=== PATIENT | male | born 1980 | race Caucasian/White ===

== ENCOUNTER → 2018-01-28 | Outpatient (CLI) | payer OTHER ==
[~2018-01-28] MED LIST: AMITRIPTYLINE H25 M2 PO; FLEXERIL PO; HYDROCODONE-AP1 EAC6; IBUPROFEN 800800 MG PO; NAPROSYN500 MG PO; NEURONTIN600 MG PO; NORTRIPTYLINE H25 M3 PO
== END ==
LOC: M.MRI 06:53
DX: M77.31 Calcaneal spur, right foot (principal); Z87.891 Personal history of nicotine dependence

== ENCOUNTER 2018-05-25 15:41 | Emergency (ER) | payer OTHER ==
[~2018-05-25] VITALS: Ht 198.1 cm; Wt 85.3 kg
[~2018-05-25 15:41] MED LIST changes: -IBUPROFEN 800800 MG PO
[2018-05-25 15:48] VITALS: BP 132/63
[2018-05-25] MEDS ORDERED: FLEXERIL PO (15:56)
[2018-05-25] MEDS ORDERED: IBUPROFEN 800800 MG PO (15:56)
== END 2018-05-25 16:09 | disposition home or self-care (01) ==
LOC: M.ERS 15:41
DX: S13.8XXA Sprain of joints and ligaments of other parts of neck, initial encounter (principal); F17.210 Nicotine dependence, cigarettes, uncomplicated; X50.0XXA Overexertion from strenuous movement or load, initial encounter; Y92.512 Supermarket, store or market as the place of occurrence of the external cause; Y93.89 Activity, other specified; Y99.8 Other external cause status

== ENCOUNTER 2020-12-18 09:41 | Emergency (ER) | payer OTHER ==
[~2020-12-18] VITALS: Ht 198.1 cm; Wt 95.3 kg
[~2020-12-18 09:41] MED LIST changes: +IBUPROFEN 800800 MG PO
[2020-12-18] MEDS ORDERED: HYDROCODON-ACE1 EAC7 PO (12:03)
[2020-12-18] MEDS ORDERED: LIDODERM1 EACH TOP (12:10)
[2020-12-18 12:22] VITALS: BP 152/86
[2020-12-19] MEDS ORDERED: FLEXERIL PO ×3 (23:32→23:35)
== END 2020-12-18 12:23 | disposition home or self-care (01) ==
LOC: M.ERS 09:41
DX: S30.0XXA Contusion of lower back and pelvis, initial encounter (principal); F17.210 Nicotine dependence, cigarettes, uncomplicated; Z98.890 Other specified postprocedural states; W17.89XA Other fall from one level to another, initial encounter; Y93.89 Activity, other specified; Y92.89 Other specified places as the place of occurrence of the external cause; Y99.8 Other external cause status

== ENCOUNTER 2020-12-19 22:39 | Emergency (ER) | payer OTHER ==
[~2020-12-19] VITALS: Ht 198.1 cm; Wt 99.8 kg
[~2020-12-19 22:39] MED LIST changes: +HYDROCODON-ACE1 EAC7 PO; +LIDODERM1 EACH TOP
[2020-12-19] MEDS ORDERED: FLEXERIL PO ×3 (23:32→23:35)
[2020-12-19 23:46] VITALS: BP 172/98
== END 2020-12-19 23:47 | disposition home or self-care (01) ==
LOC: M.ERS 22:39
DX: S20.211A Contusion of right front wall of thorax, initial encounter (principal); F17.210 Nicotine dependence, cigarettes, uncomplicated; W18.39XA Other fall on same level, initial encounter; Y93.89 Activity, other specified; Y92.89 Other specified places as the place of occurrence of the external cause; Y99.8 Other external cause status